=== PATIENT | male | born 1955 | race Two or more races ===

== ENCOUNTER 2021-07-25 11:06 | Outpatient (CLI) | payer MEDICARE ==
[~2021-07-25 11:06] MED LIST: SIMV5TAB14 PO
== END 2021-07-25 23:59 | disposition home or self-care (01) ==
LOC: CVU 11:06 → CFH 23:59
PROVIDERS: ATTEND Internal Medicine Cardiovascular Disease
DX: I35.8 Other nonrheumatic aortic valve disorders (principal); I25.10 Atherosclerotic heart disease of native coronary artery without angina pectoris
CPT/HCPCS: 78452; 93017; 93306; A9502